=== PATIENT | female | born 1945 | race Caucasian/White ===

== ENCOUNTER → 2020-07-29 | Outpatient (CLI) | payer MEDICARE ==
[~2020-07-29] MED LIST: BLOOD PRESSURE MED PO; CLEOCIN HCL300 MG PO; COZAAR 50MG TAB50 MG PO; GLUCOPHAGE500 MG PO; LIPITOR TAB 1010 MG PO; NORCO 5-325 TA1 EACH PO
[2020-07-29 09:31] LABS: HEMOGLOBIN 14.8 gm/dl (12.3-15.3); RED BLOOD COUNT 5.11 M/UL (4.00-5.10); WHITE BLOOD COUNT 8.2 K/UL (4.5-11.0)
[2020-07-29 09:49] LABS: BUN/CREATININE RATIO 15 (0-10)
== END ==
LOC: CT 08:57
PROVIDERS: Internal Medicine Hematology & Oncology
DX: C18.2 Malignant neoplasm of ascending colon (principal); C77.2 Secondary and unspecified malignant neoplasm of intra-abdominal lymph nodes; D70.3 Neutropenia due to infection
CPT/HCPCS: 36415; 80053; 82378; 85027; Q9967

== ENCOUNTER → 2020-12-21 | Outpatient (CLI) | payer MEDICARE | LOC: EXRD 12-02 10:15 | DX: E80.6 Other disorders of bilirubin metabolism (principal); Z78.0 Asymptomatic menopausal state; M85.80 Other specified disorders of bone density and structure, unspecified site; K76.0 Fatty (change of) liver, not elsewhere classified; K80.20 Calculus of gallbladder without cholecystitis without obstruction | CPT/HCPCS: 76705; 77080 ==

== ENCOUNTER → 2021-02-16 | Outpatient (CLI) | payer MEDICARE ==
[2021-02-16 08:18] LABS: HEMOGLOBIN 13.8 gm/dl (12.3-15.3); RED BLOOD COUNT 4.84 M/UL (4.00-5.10); WHITE BLOOD COUNT 6.9 K/UL (4.5-11.0)
[2021-02-16 08:45] LABS: BUN/CREATININE RATIO 15 (0-10)
== END ==
LOC: CT 02-09 09:00
PROVIDERS: Internal Medicine Hematology & Oncology
DX: C18.2 Malignant neoplasm of ascending colon (principal); C77.2 Secondary and unspecified malignant neoplasm of intra-abdominal lymph nodes; D70.3 Neutropenia due to infection; K80.20 Calculus of gallbladder without cholecystitis without obstruction
CPT/HCPCS: 36415; 80053; 82378; 85025; Q9967